=== PATIENT | male | born 1945 | race Caucasian/White ===

== ENCOUNTER 2017-04-11 09:41 | Inpatient (IN) | payer MEDICARE, OTHER ==
[~2017-04-11] VITALS: Ht 177.8 cm; Wt 86.2 kg
[~2017-04-11 09:41] MED LIST: AMITRIPTYLIN25 MG PO; AMLODIPINE5 MG PO; ASPIRIN EC81 MG PO; AVELOX400 MG PO; BL ADULT ASA81 MG PO; CELEXA20 MG PO; CITALOPRAM20 MG PO; COMBIVENT INH; COMBIVENT RESPIMAT IN; GLIMEPIRIDE2 MG PO; GLYBURIDE5 MG PO; HYDROCO/APAP1 TA9 PO; LEFLUNOMIDE20 MG PO; LISINOPRIL20 MG PO; LOPRESSOR 550 MG/TAB PO; LORTAB 7.57.5 MG PO; METO50TA52 PO; NASONEX50 MCG/AC; NITROSTAT0.4 MG PO; PREDNISONE10 MG PO; PREDNISONE5 MG PO; PROVENTIL HFA IN; SIMVASTATIN10 MG PO; SYMBICORT 80-4.5MCG IN; SYMBICORT1 AE1 IN; TERAZOSIN5 MG PO; THEOPHYLLINE S200 MG PO; TIZANIDINE2 MG PO; ZESTRIL10 M1 PO; ZPAK PO
[2017-04-11] MEDS ORDERED: HYDROCO/APAP1 T13 PO (14:06)
[2017-04-11] MEDS ORDERED: IPRATROPIU0.5 MG/3 M IN (14:07)
[2017-04-11] MEDS ORDERED: GABAPENTIN300 M2 PO (14:08)
[2017-04-11] MEDS ORDERED: VENTOLIN HFA IN (14:09)
[2017-04-11] MEDS ORDERED: ALLERGY NA50 MCG/ACT (14:12)
[2017-04-11] MEDS ORDERED: THEO-24400 MG PO (14:12)
[2017-04-11] MEDS ORDERED: MULTIVITAMI1 PO (14:14)
[2017-04-11] MEDS ORDERED: INCRUSE EL62.5 MCG/I IN (14:22)
[2017-04-11] MEDS ORDERED: GLIPIZIDE ER5 MG PO (14:22)
[2017-04-15] VITALS (10 sets, daily range): BP systolic 132–187; BP diastolic 72–108
[2017-04-15 08:01] LABS: HEMATOCRIT 40.4 % (39.0-50.0); HEMOGLOBIN 13.1 g/dl (14.0-18.0); MEAN CELL VOLUME 96.9 fL CALC (80.0-100.0); MEAN CORPUSCULAR HGB 31.4 pG CALC (26.0-32.0); MEAN CORPUSCULAR HGB CONC 32.4 g/L CALC (32.0-36.0); NEUT# 4.36 thou/uL (1.82-7.42); RED BLOOD COUNT 4.17 mill/uL (4.70-6.10); RED CELL DISTRI WIDTH 13.9 % (11.5-15.5)
--- NOTE | 2017-04-15 13:39 | NUR ---
REPORT RECEIVED FROM JEFRY IN OR, PT ARRIVED ON UNIT IN BED, SETTLED IN ROOM, C/O STEADY PAIN TO L. HIP @ 8/10, O2 @ 2L APPLIED, SURGICAL DRESSING TO LEFT KNEE IN PLACE DRY AND INTACT, LEG ELEVATED ON PILLOWS, ICE PACK APPLIED, SCD PLACED, CALL DEAN IN REACH, SPOUSE AT BEDSIDE.
--- NOTE | 2017-04-15 14:36 | NUR ---
PT. INSTRUCTED ON USE OF INCENTIVE SPIROMETER. DEVICE LEFT AT BEDSIDE WITH INSTRUCTION TO USE 10X/HR.
--- NOTE | 2017-04-15 17:17 | NUR ---
PATIENT WAS NOT YET ON FLOOR EARLIER THIS AFTERNOON. RETURNED FOR P.T. EVAL AND PATIENT HAVING ELEVATED BP AND 9.75/10 PAIN. THIS IS SFTER RECEIVING PAIN MEDS. DISCUSSED WITH NSG, WHO STATES PATIENT MAY DO BETTER IN THE AM. HE HAS ONLY BEEN UP ON FLOOR FOR COUPLE OF HOURS. WILL F/U TOMORROW MORNING.
--- NOTE | 2017-04-15 19:00 | NUR ---
REPORT RECEIVED FROM DIPAK HUMPHREYS,[facility]; PT.UPRIGHT IN BED W/FAMILY AT BEDSIDE; NO S/S OF DISTRESS AT THIS TIME;
--- NOTE | 2017-04-15 19:47 | NUR ---
ELEVATED BP AND HR, MD NOTIFIED AND GAVE ORDERS, NEXT SHIFT INFORMED AND WILL CONTINUE CARE, ALSO REPORTS PAIN NOT CONTROLLED.
--- NOTE | 2017-04-15 20:25 | NUR ---
NOTIFIED THAT PT.HR IS STILL ELEVATED IN THE 150'S W/BP 132/80; ORDERED LOPRESSOR IF HR NOT DOWN IN 15 MINUTES IN RESPONSE TO MEDICATION GIVEN BY DONNELLCOANGELINA
--- NOTE | 2017-04-15 20:56 | NUR ---
HR 158 W/BP 149/91, MEDICATED PT.W/LOPRESSOR, FOLLOW-UP HR @113
--- NOTE | 2017-04-15 23:16 | NUR ---
NEB TX NOT GIVEN DUE TO PREVIOUS TACHYCARDIA.
--- NOTE | 2017-04-16 | NUR ---
CALLED TO FOLLOW-UP W/PT.HR,SYMPTOMS,STATUS; PT.ASYMPTOMATIC, HR 113-115, INSTRUCTED TO CALL BACK IF HR ELEVATES
--- NOTE | 2017-04-16 03:18 | NUR ---
PT.MEDICATED FOR PAIN, PT.HAS BEEN SLEEPING, PT.NOT MOVING MUCH, LEG ELEVATED ON PILLOWS AND ALTERNATING ICE PACKS; PT. HAS CPAP OFF AT THIS TIME; DENIES ANY FURTHER NEEDS
[2017-04-16 05:10] VITALS: BP 145/62
[2017-04-16 05:54] LABS: HEMATOCRIT 35.3 % (39.0-50.0); HEMOGLOBIN 11.3 g/dl (14.0-18.0); IMMATURE GRANULOCYTES 0.7 % (0.0-1.0); MEAN CELL VOLUME 100.9 fL CALC (80.0-100.0); MEAN CORPUSCULAR HGB 32.3 pG CALC (26.0-32.0); NEUT# 9.35 thou/uL (1.82-7.42); RED BLOOD COUNT 3.5 mill/uL (4.70-6.10)
--- NOTE | 2017-04-16 06:06 | NUR ---
NEB TX NOT GIVEN DUE TO PREVIOUS TACHYCARDIA.
[2017-04-16 06:11] LABS: CALCIUM 8.5 mg/dL (8.4-10.2); CREATININE 1.7 mg/dL (0.7-1.3)
--- NOTE | 2017-04-16 07:00 | NUR ---
SHIFT CHANGE REPORT FROM CLARA, PT AWAKE ALERT AND ORIENTED IN SEMI-FOWLERS POSITION, O2 OFF AT THIS TIME, SATS = 72%, O2 REPLACED, SATS UP TO 84%, BREATHING SHALLOW AND LABORED. ASSISTED PT OOB TO RECLINER, GOT WINDED DURING TRANSFER, REASSESSED IN 20 MINS, PT RELAXED WITH EVEN NON-LABORED BREATHING, WILL CONTINUE TO MONITOR.
[2017-04-16 08:00] VITALS: BP 138/63
[2017-04-16 11:30] VITALS: BP 104/53
--- NOTE | 2017-04-16 12:45 | NUR ---
SITTING UP IN RECLINER, PAIN CONCERNS ADDRESSED, CALL DEAN IN REACH.
--- NOTE | 2017-04-16 13:15 | NUR ---
CARSON REMOVED AFTER INFORMING PT OF PROCEDURE, TOLERATED WITHOUT DIFFICULTY/DISCOMFORT, WILL CONTINUE TO MONITOR.
[2017-04-16 15:17] VITALS: BP 123/61
--- NOTE | 2017-04-16 16:54 | NUR ---
RESTING IN BED AT THIS TIME, NO C/O DISCOMFORT, SPOUSE AT BEDSIDE, CALL DEAN IN REACH.
--- NOTE | 2017-04-16 17:47 | NUR ---
PM: PATEINT SEEN THIS PM FOR EX ONLY HE WAS TOO TIRED TO GET OOB AGAIN. ACTIVE, AA AND ISOMETRICS DONE WITH LEFT LE. AND ACTIVE EX WITH RIGHT. HE APPEARED TO TOLERATE TREATMENT WELL AND SEEMED TO HAVE AN EASIER TIME STAYING AWAKE THAN HE DID THIS MORNING DURING THE EVAL. HE WAS LEFT COMFORTABLE WITH THE CALL LIGHT BY HIS SIDE. HIS IS IN THE ROOM WITH HIM.
--- NOTE | 2017-04-16 18:51 | NUR ---
PT HAS NOT VOIDED SINCE CARSON REMOVED @ 1315, BLADDER SCANNED = 75 ML @ 1845, WILL CONTINUE TO MONITOR.
[2017-04-16 19:35] VITALS: BP 137/71
--- NOTE | 2017-04-16 19:56 | NUR ---
REPORT RECEIVED FROM SYLVIA HUMPHREYS; SHE REPORTED THAT CARSON CATHETER WAS REMOVED AND PT.HAS NOT URINATED, PT. WAS BLADDER SCANNED SHOWING ONLY 75CC OF 1844; JULIANN CALLED WHO ORDERED 1LITER NS X1 @ 100ML/HR, ENCOURAGE PO FLUIDS AND MONITOR OUTPUT, AND TO CALL HIM IF PT.DOES NOT START TO URINATE; WILL CONTINUE TO MONITOR PROGRESS AND ENCOURAGE PO FLUIDS AND USE OF URINAL.
--- NOTE | 2017-04-16 21:17 | NUR ---
PT ASSESSED AND MEDICATED, NS RUNNING @100; MADE SURE PT.DRANK 120CC OF WATER; 1+EDEMA IN LEFT LEG/ANKLE, LEG ELEVATED ON PILLOWS AND ICE PACK IN PLACE; PT.SHOWING SOME SOB UPON ANY MOVEMENT, NON-LABORED BREATHING WHEN LYING STILL; PT.ASSISTED W/BIPAP PLACEMENT AND LIGHTS OUT;
--- NOTE | 2017-04-16 21:19 | NUR ---
BS 89, PT.EATING SUSSY CRACKERS AT THIS TIME
[2017-04-16 23:52] VITALS: BP 141/70
--- NOTE | 2017-04-17 00:39 | NUR ---
PT.DRANK 120CC WATER FOR ME, OUTPUT IN URINAL 250CC OF DARK YELLOW CLEAR URINE; CPAP BACK ON, REPOSITONED W/LEG ELEVATED AND CALL LIGHT W/IN REACH
[2017-04-17 04:20] VITALS: BP 143/62
[2017-04-17 05:37] LABS: HEMATOCRIT 33.6 % (39.0-50.0); HEMOGLOBIN 10.9 g/dl (14.0-18.0); IMMATURE GRANULOCYTES 0.7 % (0.0-1.0); MEAN CELL VOLUME 97.4 fL CALC (80.0-100.0); MEAN CORPUSCULAR HGB 31.6 pG CALC (26.0-32.0); MEAN CORPUSCULAR HGB CONC 32.4 g/L CALC (32.0-36.0); NEUT# 9.19 thou/uL (1.82-7.42); RED BLOOD COUNT 3.45 mill/uL (4.70-6.10); RED CELL DISTRI WIDTH 13.9 % (11.5-15.5)
--- NOTE | 2017-04-17 05:38 | NUR ---
PT.ENCOURAGED THROUGHOUT NIGHT PO FLUIDS AND HAD ANOTHER 300CC OF URINE OUTPUT OF DILEEP CLEAR URINE
[2017-04-17 05:50] LABS: CALCIUM 8.6 mg/dL (8.4-10.2); CREATININE 1.7 mg/dL (0.7-1.3); POTASSIUM 4.4 mmol/l (3.5-5.1)
--- NOTE | 2017-04-17 07:00 | NUR ---
SHIFT CHANGE REPORT FROM CLIFFORD ELIZABETH AWAKE, C-PAP IN PLACE, ASSISTED OOB TO RECLINER AND SET UP FOR MEAL, C/O L. LEG/KNEE PAIN ON MOVEMENT, CONCERN ADDRESSED, DISCUSSION ON PREVENTION OF CONSTIPATION AND ADDRESSED CONDITION, CALL DEAN IN REACH, SPOUSE JUST ARRIVED IN ROOM.
[2017-04-17 07:31] VITALS: BP 184/81
[2017-04-17 11:08] VITALS: BP 143/77
--- NOTE | 2017-04-17 12:00 | NUR ---
SITTING UP IN RECLINER, PAIN CONCERNS ADRESSED, ADVISED OF SURGICAL DRESSING ORDERS, OLD DRESSING REMOVED AND NEW ONE APPLIED PER ORDER.
--- NOTE | 2017-04-17 13:26 | NUR ---
AM: PATEINT SEEN FOR FA AND EXERCISE. HIS STATES HE IS MUCH MORE CONFUSED THAN BEFORE SURGERY.HE FOLLOWS INSTRUCTIONS 75% OF THE TIME. STOOD PATIENT TIMES 1. HE REQUIRED MAX ASSIST OF 1 TO COME TO STAND. HE HELPS WITH THE TRANSFER. STANDS WITH THE WALKER IN A STOOPED POSITION WITH RIGHT KNEE FLEXED ABOUT 15 DEGREES. HIS THIS IS HOW HE STOOD BEFORE SURGERY. MARCHING IN PLACE EX DONE FOR 10 REPS. ENDURANCE LIMITED BY SOB. PO2 DECREASED TO 80 DURING STANDING WITH THE O2 ON. APPROX 8 MIN REQUIRED BEFORE IT RETURNED TO BASELINE. ACTIVE EX DONE FOR ANGELIQUE DN STRENGTHENING OF THE LEFT KNEE. HE WAS LEFT IN THE CHAIR WITH THE CALL LIGHT ON HIS LAP. HIS IS IN THE ROOM.
[2017-04-17 15:30] VITALS: BP 151/71
--- NOTE | 2017-04-17 16:05 | NUR ---
PHYSICAL THERAPIST JUST COMPLETED THERAPY WITH PT AND ASSISTED HEM BACK TO BED, LETHARGIC AT THIS TIME AND STATES HE IS TIRED FROM NOT SLEEPING SINCE BEING HERE, WILL CONTINUE TO MONITOR. SPOUSE AT BEDSIDE, CALL DEAN IN REACH.
--- NOTE | 2017-04-17 16:52 | NUR ---
PM: PATIENT SEEN FOR FA. FA FOR TRANSFERS FROM SIT TO AND FROM STAND AND TRANSFERS TO THE BED FROM THE CHAIR. HE SHOWED IMPROVEMENT TODAY DURING THE PIVOT TRANSFERS SUPPORTING MUCH OF HIS WGT AND MOVING HIS FEET INDEP. HE REQUIRED CONTINUAL MANUAL AND VERBAL CUING TO STAND STRAIGHT AND EXTEND THE KNEES. HE REQUIRED MAX ASSIST TO COMPLETE THE FINAL 2 STEPS OF THE TRANSFER HIS KNEES WERE BUCKLING. SIT TO SUPINE REQUIRES MOD ASSIST OF TWO. HE BECOMES CONFUSED WHEN TRYING TO ASSIST. PULSE AND O2 MONITERED BY AIDE WHO RECORDED THEM. THEY BOTH RETURNED TO BASELINE WITHIN 30 SECONDS. HE WAS LEFT COMFORTABLE IN THE BED WITH HIS IN ATTENDANCE.
[2017-04-17 18:56] VITALS: BP 158/77
--- NOTE | 2017-04-17 19:00 | NUR ---
STAFF REPORTED ED CALLED WITH HR RATE IN 130'S, ON OBSERVATION THEY FOUND PT TALKING ON PHONE WITH NO OXYGEN IN PLACE AND DIFFICULTY BREATHING. DR PEACOCK NOTIFIED OF CONDITION AND GAVE ORDERS. TEMP AT THIS TIME = 101.9, PERCOCET GIVEN, HEAVY COVERS REMOVED AND ROOM TEMP DECREASED. TEMP RECECKED @ 1930 = 100.2, REPORT GIVEN TO NEXT SHIFT (SEUN) FOR CONTINUATION OF CARE.
--- NOTE | 2017-04-17 19:10 | NUR ---
RECEIVED SHIFT REPORT FRON DIPAK HUMPHREYS. PATIENT RESTING QUIETLY AT THIS TIME IN BED. TEMP OF 100.7. WILL CONTINUE TO MONITOR
--- NOTE | 2017-04-17 20:40 | NUR ---
NOTIFY DR PEACOCK OF PATIENT'S CONDITION. ORDERS RECEIVED FOR UA, CXR, BLOOD CULTURES, AND LACTIC ACID.
--- NOTE | 2017-04-17 22:00 | NUR ---
TEMPERATURE AT THIS TIME IS 98.9
--- NOTE | 2017-04-17 23:00 | NUR ---
PATIENT UP TO RECLINER CHAIR. PT HAS PERIODS OF CONFUSION. O2 SAT AT 92% ON 2L NC.
[2017-04-18] VITALS: BP 160/80
--- NOTE | 2017-04-18 00:30 | NUR ---
ASSISTED PATIENT BACK TO BED. RESPIRATORY THERAPIST ASSIT PATIENT WITH APPLYING C-PAP. PT RESTING COMFORTABLY AT THIS TIME. PT APPEARS NOT TO BE IN ANY APPARENT ACUTE DISTRESS. WILL CONTINUE TO MONITOR.
[2017-04-18 00:58] LABS: URINE BILIRUBIN - DIPSTICK NEGATIVE (NEGATIVE); URINE BLOOD DIPSTICK LARGE (NEGATIVE); URINE CLARITY CLEAR; URINE COLOR YELLOW; URINE GLUCOSE - DIPSTICK NEGATIVE (NEGATIVE); URINE KETONE 15 mg/dL (NEGATIVE); URINE LEUK ESTERASE NEGATIVE (Negative); URINE NITRITE - DIPSTICK NEGATIVE (Negative); URINE PH 5.5 (4.5-8.0); URINE PROTEIN - DIPSTICK 30 mg/dL (NEG-TRACE); URINE UROBILINOGEN - DIPSTICK 0.2 E.U./dL (0.2)
[2017-04-18 01:08] LABS: URINE BACTERIA FEW hpf; URINE RBC 25-50 RBC/hpf (0-5); URINE WBC 0-2 WBC/hpf (0-5)
[2017-04-18 01:09] LABS: URINE FINE GRAN CAST FEW lpf
[2017-04-18 04:10] VITALS: BP 130/68
[2017-04-18 06:15] LABS: HEMATOCRIT 31.9 % (39.0-50.0); HEMOGLOBIN 10.6 g/dl (14.0-18.0); IMMATURE GRANULOCYTES 0.6 % (0.0-1.0); MEAN CELL VOLUME 97.3 fL CALC (80.0-100.0); MEAN CORPUSCULAR HGB 32.3 pG CALC (26.0-32.0); MEAN CORPUSCULAR HGB CONC 33.2 g/L CALC (32.0-36.0); NEUT# 8.42 thou/uL (1.82-7.42); RED BLOOD COUNT 3.28 mill/uL (4.70-6.10); RED CELL DISTRI WIDTH 13.9 % (11.5-15.5)
[2017-04-18 06:30] LABS: CALCIUM 8.8 mg/dL (8.4-10.2); CREATININE 1.6 mg/dL (0.7-1.3); POTASSIUM 4.5 mmol/l (3.5-5.1)
--- NOTE | 2017-04-18 08:30 | NUR ---
PT ALERT, RESTLESS; O2 2L VIA NC; PT C/O LEFT KNEE PAIN 08/07, MEDICATED ORDERED; TELE MONITOR IN PLACE; CALL DEAN WITHIN REACH; WILL CONTINUE TO MONITOR.
[2017-04-18 08:31] VITALS: BP 156/82
--- NOTE | 2017-04-18 10:00 | NUR ---
DRSG TO LEFT KNEE REMOVED; MODERATE AMOUNT OF EDEMA NOTED, WARM TO TOUCH; AREA CLEANED WITH BETADINE; COVERED WITH 4X4 GAUZE AND SECURE WITH MEDIPORE TAPE; PT TOLERATED WELL; NO COMPLAINTS VOICED AT THIS TIME; O2 2L VIA NC; SPOUSE IN ROOM TO VISIT; CALL DEAN WITHIN REACH; WILL CONTINUE TO MONITOR
--- NOTE | 2017-04-18 11:30 | NUR ---
PT INCONTINENT OF MODERATE AMOUNT OF URINE; LINDA CARE PROVIDED AND PT REPOSITIONED; SPOUSE IN TO VISIT PT; O2 2L VIA NC; CALL DEAN WITHIN REACH; WILL CONTINUE TO MONITOR.
--- NOTE | 2017-04-18 12:14 | NUR ---
AM: THERAPY HELD IN AM. PATIENT SOUND ASLEEP AFTER A VERY RESTLESS NIGHT. WILL TRY TO SEE HIM THIS P.M. IF HE IS AWAKE.
[2017-04-18 12:30] VITALS: BP 125/82
--- NOTE | 2017-04-18 12:49 | NUR ---
Attempted treatment again this pm, was able to get pt eyes open but unable to stay alert. Pt gown was changed due to being wet and nursing notifed that bed needed to be change.
[2017-04-18] MEDS ORDERED: ASPIRIN EC325 MG PO (13:04)
[2017-04-18] MEDS ORDERED: PROTONIX40 M2 PO (13:04)
[2017-04-18] MEDS ORDERED: HYDROCO/APAP1 T13 PO (13:04)
--- NOTE | 2017-04-18 16:13 | NUR ---
PT UP IN CHAIR; SPOUSE IN ROOM TO VISIT; PT AROUSABLE/DRWOSY; A/O X2; IVF INFUSING IN #22 LH WITHOUT DIFFICULTY; CALL DEAN WITHIN REACH; WILL CONTINUE TO MONITOR.
--- NOTE | 2017-04-18 16:53 | NUR ---
Discharge instructions given. Patient verbalizes understanding of same. Discharged in stable condition via Wheelchair to R with *Other. All belongings sent with pt.
== END 2017-04-18 17:01 | DRG 470 ==
LOC: MS2 04-15 06:51
PROVIDERS: ADMIT Orthopaedic Surgery; ATTEND Internal Medicine
PROC: 0SRD0J9 Replacement of Left Knee Joint with Synthetic Substitute, Cemented, Open Approach (ICD-10-PCS; principal; 2017-04-15)
DX: M17.12 Unilateral primary osteoarthritis, left knee (principal); J96.11 Chronic respiratory failure with hypoxia; F05 Delirium due to known physiological condition; E11.22 Type 2 diabetes mellitus with diabetic chronic kidney disease; E11.40 Type 2 diabetes mellitus with diabetic neuropathy, unspecified; I12.9 Hypertensive chronic kidney disease with stage 1 through stage 4 chronic kidney disease, or unspecified chronic kidney disease; N18.3 Chronic kidney disease, stage 3 (moderate); J44.9 Chronic obstructive pulmonary disease, unspecified; G47.33 Obstructive sleep apnea (adult) (pediatric); E78.5 Hyperlipidemia, unspecified; N40.0 Benign prostatic hyperplasia without lower urinary tract symptoms; R00.0 Tachycardia, unspecified; Z99.81 Dependence on supplemental oxygen; Z87.891 Personal history of nicotine dependence
CPT/HCPCS: J2270; J2795

== ENCOUNTER 2017-05-07 10:44 | Emergency (ER) | payer MEDICARE, OTHER ==
[~2017-05-07] VITALS: Ht 177.8 cm; Wt 80.9 kg
[~2017-05-07 10:44] MED LIST changes: +ALLERGY NA50 MCG/ACT; +ASPIRIN EC325 MG PO; +GABAPENTIN300 M2 PO; +GLIPIZIDE ER5 MG PO; +HYDROCO/APAP1 T13 PO; +INCRUSE EL62.5 MCG/I IN; +IPRATROPIU0.5 MG/3 M IN; +MULTIVITAMI1 PO; +PROTONIX40 M2 PO; +THEO-24400 MG PO; +VENTOLIN HFA IN
[2017-05-07] MEDS ORDERED: SEROQUEL25 MG PO (11:15)
[2017-05-07 11:18] LABS: HEMATOCRIT 34.8 % (39.0-50.0); HEMOGLOBIN 11.1 g/dl (14.0-18.0); IMMATURE GRANULOCYTES 1.3 % (0.0-1.0); MEAN CORPUSCULAR HGB 31.3 pG CALC (26.0-32.0); MEAN CORPUSCULAR HGB CONC 31.9 g/L CALC (32.0-36.0); NEUT# 4.63 thou/uL (1.82-7.42); RED BLOOD COUNT 3.55 mill/uL (4.70-6.10); RED CELL DISTRI WIDTH 14.4 % (11.5-15.5)
[2017-05-07 11:37] LABS: ALBUMIN 3.7 g/dL (3.2-5.0); ALKALINE PHOSPHATASE 70 u/l (38-126); ANION GAP 12 (6-22 (CALC)); BILIRUBIN, TOTAL 0.4 mg/dL (0.0-1.4); BUN 17 mg/dL (8-23); BUN/CREATININE RATIO 13 (12-20 (CALC)); CALCIUM 9.2 mg/dL (8.4-10.2); CARBON DIOXIDE 26 mmol/l (22-30); CHLORIDE 105 mmol/l (95-108); CREATININE 1.3 mg/dL (0.7-1.3); GFR 54 ML/MIN (>=60 (CALC)); GFR FOR AFR.AMER. > 60 ML/MIN (>=60 (CALC)); GLUCOSE 98 mg/dL (82-115); POTASSIUM 4.6 mmol/l (3.5-5.1); SGOT/AST 19 u/l (19-48); SGPT/ALT 24 u/l (11-66); SODIUM 139 mmol/l (137-146); TOTAL PROTEIN 6.6 g/dL (6.3-8.2)
[2017-05-07 16:58] VITALS: BP 164/76
== END 2017-05-07 16:34 ==
LOC: ED 10:44
PROVIDERS: Emergency Medicine
DX: T81.31XA Disruption of external operation (surgical) wound, not elsewhere classified, initial encounter (principal); I25.10 Atherosclerotic heart disease of native coronary artery without angina pectoris; J44.9 Chronic obstructive pulmonary disease, unspecified; I10 Essential (primary) hypertension; B95.62 Methicillin resistant Staphylococcus aureus infection as the cause of diseases classified elsewhere; Y83.1 Surgical operation with implant of artificial internal device as the cause of abnormal reaction of the patient, or of later complication, without mention of misadventure at the time of the procedure; Z95.5 Presence of coronary angioplasty implant and graft; Z96.652 Presence of left artificial knee joint

== ENCOUNTER 2017-08-23 11:46 | Inpatient (IN) | payer MEDICARE, OTHER ==
[~2017-08-23] VITALS: Ht 180.3 cm; Wt 77.7 kg
[~2017-08-23 11:46] MED LIST changes: +SEROQUEL25 MG PO
--- NOTE | 2017-08-23 12:00 | NUR ---
DIRECT ADMIT VIA WHEELCHAIR ACCOMPANIED BY . AMBULATED TO BED WITH STAND BY ASSIST. RESPS EVEN AND UNLABORED ON ROOM AIR. SKIN INTACT. DENIES PAIN OR DISCOMFORT. ORIENTED TO ROOM AND CALL SYSTEM. SAFETY PRECAUTIONS REINFORCED. BED IN LOWEST POSITION WITH WHEELS LOCKED. CALL LIGHT WITHIN REACH. ENCOURAGED PT AND TO CALL FOR ANY NEEDS.
[2017-08-23 12:25] VITALS: BP 139/81
[2017-08-23 12:32] LABS: HEMATOCRIT 30.8 % (39.0-50.0); HEMOGLOBIN 9.9 g/dl (14.0-18.0); MEAN CELL VOLUME 89.8 fL CALC (80.0-100.0); MEAN CORPUSCULAR HGB 28.9 pG CALC (26.0-32.0); MEAN CORPUSCULAR HGB CONC 32.1 g/L CALC (32.0-36.0); NEUT# 5.09 thou/uL (1.82-7.42); RED BLOOD COUNT 3.43 mill/uL (4.70-6.10); RED CELL DISTRI WIDTH 14.9 % (11.5-15.5)
[2017-08-23 12:47] LABS: ALBUMIN 3.2 g/dL (3.2-5.0); ALKALINE PHOSPHATASE 81 u/l (38-126); ANION GAP 16 (6-22 (CALC)); BILIRUBIN, TOTAL 0.3 mg/dL (0.0-1.4); BUN 13 mg/dL (8-23); BUN/CREATININE RATIO 12 (12-20 (CALC)); CALCIUM 8.8 mg/dL (8.4-10.2); CARBON DIOXIDE 26 mmol/l (22-30); CHLORIDE 104 mmol/l (95-108); CREATININE 1.2 mg/dL (0.7-1.3); GFR 59 ML/MIN (>=60 (CALC)); GFR FOR AFR.AMER. > 60 ML/MIN (>=60 (CALC)); GLUCOSE 120 mg/dL (82-115); POTASSIUM 4.2 mmol/l (3.5-5.1); SGOT/AST 23 u/l (19-48); SGPT/ALT 29 u/l (11-66); SODIUM 141 mmol/l (137-146); TOTAL PROTEIN 7.1 g/dL (6.3-8.2)
[2017-08-23 14:35] LABS: URINE BILIRUBIN - DIPSTICK NEGATIVE (NEGATIVE); URINE BLOOD DIPSTICK NEGATIVE (NEGATIVE); URINE CLARITY CLEAR; URINE COLOR YELLOW; URINE GLUCOSE - DIPSTICK NEGATIVE (NEGATIVE); URINE KETONE NEGATIVE (NEGATIVE); URINE LEUK ESTERASE NEGATIVE (Negative); URINE NITRITE - DIPSTICK NEGATIVE (Negative); URINE PROTEIN - DIPSTICK TRACE mg/dL (NEG-TRACE); URINE SPECIFIC GRAVITY 1.015; URINE UROBILINOGEN - DIPSTICK 0.2 E.U./dL (0.2)
[2017-08-23] MEDS ORDERED: LORTAB 10-325 M1 TAB PO (15:16)
[2017-08-23] MEDS ORDERED: ZOCOR20 M1 PO (15:27)
[2017-08-23 16:00] VITALS: BP 151/81
--- NOTE | 2017-08-23 16:00 | NUR ---
RESTING IN SEMI FOWLERS. RESPS EVEN AND UNLABORED ON ROOM AIR. DENIES PAIN OR DISCOMFORT. CALL LIGHT WITHIN REACH.
[2017-08-23] MEDS ORDERED: CLINDAMYCIN300 M1 PO (18:40)
[2017-08-23] MEDS ORDERED: GLIPIZIDE ER5 M1 PO (18:41)
[2017-08-23 18:50] VITALS: BP 136/82
--- NOTE | 2017-08-23 19:00 | NUR ---
BEDSIDE REPORT RECEIVED FROM DIPAK GUAMAN. PT RESTING IN BED SUPINE. C/O LOWER BACK PAIN AT THIS TIME. RESPIRATIONS EVEN AND UNLABORED ON OXYGEN AT 2L VIA NC. PLAN OF CARE DISCUSSED. PT ENCOURAGED TO VERBALZIE CONCERNS. STATES UNDERSTANDING. REMAINS ON CONTACT PRECAUTIONS FOR MRSA. SAFETY MEASURES IN PLACE. CALL LIGHT WITHIN REACH.
--- NOTE | 2017-08-24 | NUR ---
PT AWAKENS SPONTANEOUSLY FOR MEDICATION AT THIS TIME. REQUEST PAIN MEDICATION FOR LOWER BACK PAIN; WILL GIVE NEXT DOSE WHEN DUE. IV FLUIDS INFUSING WITHOUT DIFFICULTY; IV SITE APPEARS HEALTHY. SAFETY MEASURES REMAIN IN PLACE. CALL LIGHT WITHIN REACH.
[2017-08-24 03:45] VITALS: BP 148/82
--- NOTE | 2017-08-24 04:09 | NUR ---
PT ASLEEP AT THIS TIME. NO SIGNS OF DISTRESS NOTED. RESPIRATIONS EVEN AND UNLABORED. NO CHANGES IN ASSESSMENT NOTED. CALL LIGHT WITHIN REACH.
[2017-08-24 06:25] LABS: HEMATOCRIT 29.6 % (39.0-50.0); HEMOGLOBIN 9.4 g/dl (14.0-18.0); IMMATURE GRANULOCYTES 1.4 % (0.0-1.0); MEAN CELL VOLUME 90.5 fL CALC (80.0-100.0); MEAN CORPUSCULAR HGB 28.7 pG CALC (26.0-32.0); MEAN CORPUSCULAR HGB CONC 31.8 g/L CALC (32.0-36.0); NEUT# 3.76 thou/uL (1.82-7.42); RED BLOOD COUNT 3.27 mill/uL (4.70-6.10)
--- NOTE | 2017-08-24 06:35 | NUR ---
CPAP AT BEDSIDE. PT DECLINED THIS SHIFT. RECEIVED ONLY SCHEDULED DUONEB TREATMENTS. OXYGEN SATURATIONS HAVE REMAINED ABOVE 90% AND RESPIRATIONS EVEN AND UNLABORED.
[2017-08-24 06:38] LABS: ANION GAP 16 (6-22 (CALC)); BUN 11 mg/dL (8-23); BUN/CREATININE RATIO 11 (12-20 (CALC)); CALCIUM 8.5 mg/dL (8.4-10.2); CARBON DIOXIDE 24 mmol/l (22-30); CHLORIDE 105 mmol/l (95-108); GFR > 60 ML/MIN (>=60 (CALC)); GFR FOR AFR.AMER. > 60 ML/MIN (>=60 (CALC)); GLUCOSE 102 mg/dL (82-115); MAGNESIUM 1.7 mg/dL (1.6-2.3); POTASSIUM 4.2 mmol/l (3.5-5.1); SODIUM 141 mmol/l (137-146)
[2017-08-24 07:29] VITALS: BP 130/69
--- NOTE | 2017-08-24 07:40 | NUR ---
REPORT RECEIVED FROM OJNE LOCKWOOD. PT SUPINE IN BED. REPORTS BACK PAIN, ONLY SLIGHTLY RELIEVED BY RECENT LORTAB PO. TYLENOL ADMINISTERED. REPORTING OF CONCERNS ENCOURAGED. CALL LIGHT REVIEWED AND IN REACH. PT IN AWKWARD POSITION IN BED, REPOSITIONING OFFERED AND REFUSED. PT STATES "THIS IS HOW IM MOST COMFORTABLE."
--- NOTE | 2017-08-24 13:18 | NUR ---
PT SITTING ON SIDE OF BED. DENIES HALLUCINATIONS. ALERT AND ORIENTED X 4. PT STATES "BUT IF I DID SEE SOMETHING I WASNT SUPPOSED TO, I WOULDNT TELL NOBODY EVER AGAIN." PT ENCOURAGED TO NOTIFY STAFF OF CHANGES, QUESTIONS ADN CONCERNS.
[2017-08-24 16:05] VITALS: BP 142/78
--- NOTE | 2017-08-24 16:29 | NUR ---
PT SLEEPING AT THIS TIME. CALL LIGHT WITHIN REACH.
[2017-08-24 19:18] VITALS: BP 144/73
--- NOTE | 2017-08-24 21:00 | NUR ---
PT RESTING IN SUPINE POSITION;PT COMPLAINS OF LOWER BACK PAIN RATING 8/10 ON THE PAIN SCALE;PT MEDICATED WITH PRN LORTAB;ASSESSMENT COMPLETED;02 ON @ 2L VIA NC,RESPIRATIONS EVEN AND UNLABORED AT THIS TIME;PT DENIES ANY HALLUCINATIONS AT THIS TIME;#20G TO RIGHT FOREARM INFUSING NS @ 75ML/HR;PT ON CONTACT FOR HX OF MRSA;PT DENIES ANY OTHER NEEDS AT THIS TIME;SAFETY PRECAUTIONS REINFORCED;BED IN THE LOWEST POSITION WITH CALL LIGHT IN REACH;WILL CONTINUE TO MONITOR
--- NOTE | 2017-08-25 01:50 | NUR ---
PT APPEARS TO BE SLEEPING WITH EYES CLOSED IN SUPINE POSITION;NO S/S OF DISTRESS NOTED;RESPIRATIONS EVEN AND UNLABORED ON 02 @ 2L;IV FLUIDS INFUSING WELL INTO RIGHT FOREARM;FALL PRECAUTIONS IN PLACE;CALL LIGHT IN REACH;WILL CONTINUE TO MONITOR
[2017-08-25 04:30] VITALS: BP 140/87
--- NOTE | 2017-08-25 04:31 | NUR ---
PT INITIAL TELE READING SR 95, PER ER MONITORING
--- NOTE | 2017-08-25 05:00 | NUR ---
PT APPEARS TO BE SLEEPING IN SUPINE POSITION;IV FLUIDS INFUSING WELL TO RIGHT FOREARM;O2 ON @ 2L VIA NC,RESPIRATIONS EVEN AND UNLABORED;FALL PRECAUTIONS IN PLACE WITH CALL LIGHT IN REACH;WILL CONTINUE TO MONITOR
[2017-08-25 05:33] LABS: HEMOGLOBIN 9.9 g/dl (14.0-18.0); MEAN CELL VOLUME 91.4 fL CALC (80.0-100.0); MEAN CORPUSCULAR HGB 29.2 pG CALC (26.0-32.0); MEAN CORPUSCULAR HGB CONC 31.9 g/L CALC (32.0-36.0); RED BLOOD COUNT 3.39 mill/uL (4.70-6.10); RED CELL DISTRI WIDTH 15.2 % (11.5-15.5)
[2017-08-25 05:44] LABS: ANION GAP 15 (6-22 (CALC)); BUN 12 mg/dL (8-23); BUN/CREATININE RATIO 11 (12-20 (CALC)); CALCIUM 8.7 mg/dL (8.4-10.2); CARBON DIOXIDE 24 mmol/l (22-30); CHLORIDE 106 mmol/l (95-108); GFR > 60 ML/MIN (>=60 (CALC)); GFR FOR AFR.AMER. > 60 ML/MIN (>=60 (CALC)); GLUCOSE 110 mg/dL (82-115); MAGNESIUM 1.6 mg/dL (1.6-2.3); POTASSIUM 4.3 mmol/l (3.5-5.1); SODIUM 140 mmol/l (137-146)
--- NOTE | 2017-08-25 07:25 | NUR ---
PT LAYING IN BED WATCHING TV, VERBALIZES NO COMPLAINTS, A & O X3, PERRL, RESP. EVEN AND UNLABORED, LUNG SOUNDS DIMINISHED IN BASES, O2 @ 2L VIA NC, TRACE EDEMA IN BILAT LEGS, 20G RFA IV WITH NS INFUSING AT PERSCRIBED RATE, AM ASSESSMENT COMPLETE, SEE INTERVENTIONS, SAFETY MEASURES REINFORCED, CALL DEAN WITHIN REACH
--- NOTE | 2017-08-25 07:37 | NUR ---
SETUP ASSISTANCE PROVIDED WITH AM MEAL TRAJarvis
--- NOTE | 2017-08-25 08:16 | NUR ---
DR PEACOCK AND PAYAM KIRKPATRICK AT BEDSIDE DISCUSSING PLAN OF CARE
[2017-08-25 11:00] VITALS: BP 143/69
--- NOTE | 2017-08-25 12:15 | NUR ---
PT LAYING IN BED RESTING WITH EYES CLOSED, AROUSES EASILY TO VERBAL STIMULI, PT ASSISTED WITH REPOSITIONING FOR COMFORT, CALL DEAN WITHIN REACH
--- NOTE | 2017-08-25 16:35 | NUR ---
PT LAYING IN BED RESTING, AROUSES EASILY TO VERBAL STIMULI, VERBALIZES NO COMPLAINTS, CALL DEAN WITHIN REACH
[2017-08-25 17:03] VITALS: BP 133/74
[2017-08-25 20:10] VITALS: BP 129/67; BP 156/84
--- NOTE | 2017-08-25 21:50 | NUR ---
PT RESTING IN SEMI FOWLERS POSITION RECEIVING BREATHING TX;PT DENIES ANY PAIN OR DISCOMFORTS;RESPIRATIONS EVEN AND UNLABORED ON 02 @ 2L NS;ASSESSMENT COMPLETED;#20G TO RFA INFUSING NS @ 75ML/HR WELL;CONTACT PRECAUTIONS IN PLACE FOR MRSA;EDEMA NOTED TO BLE,PT EDUCATED TO ELEVATE LEGS;HOME CPAP AT BEDSIDE;PT A&O X3 AT THIS TIME;PT DENIES ANY NEEDS AND IS EDUCATED TO CALL FOR ASSISTANCE IF NEEDED;FALL PRECAUTIONS IN PLACE;CALL LIGHT IN REACH;WILL CONTINUE TO MONITOR
[2017-08-25 23:25] VITALS: BP 138/73
--- NOTE | 2017-08-25 23:25 | NUR ---
PT APPEARS TO BE SLEEPING IN SUPINE POSITION;WOKE PT TO OBTAIN VS;PT DENIES ANY NEEDS AT THIS TIME;RESPIRATIONS EVEN AND UNLABORED ON 02 @ 2L;IV FLUIDS INFUSING WELL TO RIGHT FOREARM;CALL LIGHT IN REACH;WILL CONTINUE TO MONITOR
[2017-08-26 04:40] VITALS: BP 140/70
--- NOTE | 2017-08-26 04:45 | NUR ---
PT RESTING AT BEDSIDE WITH IV FLUIDS INFUSING WELL;PT COMPLAINS OF LOWER BACK PAIN RATING 8/10 ON THE PAIN SCALE AND REQUESTS PAIN MEDICATION;PT MEDICATED WITH PRN LORTAB;RESPIRATIONS REMAIN UNLABORED ON OXYGEN @ 2 L;TELE MONITOR IN PLACE;PT DENIES ANY OTHER NEEDS AT THIS TIME;CALL LIGHT IN REACH;WILL CONTINUE TO MONITOR
[2017-08-26 08:25] VITALS: BP 141/79
--- NOTE | 2017-08-26 08:25 | NUR ---
ASSESSMENT IS COMPLETED: LEFT KNEE IS SWOLLEN WARM TO THE TOUCH. PER PT DOESNOT HURT. IV SITE IS FREE FROM REDNESS OR EDEMA. TELE MONITOR IN PLACE. O2 @ 2LITERS WITH NC,
[2017-08-26 11:33] VITALS: BP 149/69
--- NOTE | 2017-08-26 12:03 | NUR ---
PATIENT SITTING ON EDGE OF BED. HE STATES, "HE IS READY TO GET OUT OF HERE AND GO HOME". PATIENT FEELING UNSTEADY AND PREFERS TO USE RW TODAY RATHER THAN CANE. SIT TO STAND INDEP WITH SUPERVISION. AMB 75 X 2 WITH SOME MILD UNSTEADINESS, MOSTLY WITH THE WALKER ITSELF (COMING UP OFF GROUND). NO SOB OR PAIN NOTED. PATIENT IS WAITING TO SEE PHYSICIAN TO FIND OUT IF HE IS BEING D/C'D TODAY.
[2017-08-26] MEDS ORDERED: DOXYCYCL HYC100 MG PO (12:13)
[2017-08-26] MEDS ORDERED: FLORASTOR250 M1 PO (12:13)
[2017-08-26] MEDS ORDERED: KEFLEX500 M1 PO (12:13)
--- NOTE | 2017-08-26 12:30 | NUR ---
PT IS WAITING ON FAMIL. IV SITE IS FREE FROM REDNESS OR EDEMA. PT TOOK TELE MONITOR OFF. INFORMED PT "WHEN PT'S FAMILY COMES THEN DC PAPERS ARE READY" VERBALIZED UNDERSTANDING,
--- NOTE | 2017-08-26 16:00 | NUR ---
PT'S IV SITE DISCONTINUED CATHETER INTACT. NO REDNESS OR EDEMA. ALL DISCHARGE INSTRUCTIONS GIVEN AND VERBALIZED UNDERSTANDING,
--- NOTE | 2017-08-26 16:58 | NUR ---
Discharge instructions given. Patient verbalizes understanding of same. Discharged in stable condition via Wheelchair to Home with family. All belongings sent with pt.
== END 2017-08-26 15:44 | disposition home health service (06) | DRG 71 ==
LOC: MS2 11:46
PROVIDERS: Nurse Practitioner Family; ADMIT Internal Medicine; ATTEND Internal Medicine
DX: G93.40 Encephalopathy, unspecified (principal); J96.11 Chronic respiratory failure with hypoxia; E11.22 Type 2 diabetes mellitus with diabetic chronic kidney disease; L03.116 Cellulitis of left lower limb; T81.4XXA Infection following a procedure, initial encounter; I12.9 Hypertensive chronic kidney disease with stage 1 through stage 4 chronic kidney disease, or unspecified chronic kidney disease; N18.3 Chronic kidney disease, stage 3 (moderate); J44.9 Chronic obstructive pulmonary disease, unspecified; G47.33 Obstructive sleep apnea (adult) (pediatric); N40.0 Benign prostatic hyperplasia without lower urinary tract symptoms; E78.5 Hyperlipidemia, unspecified; E86.0 Dehydration; F10.10 Alcohol abuse, uncomplicated; M25.462 Effusion, left knee; Y83.1 Surgical operation with implant of artificial internal device as the cause of abnormal reaction of the patient, or of later complication, without mention of misadventure at the time of the procedure; Z96.652 Presence of left artificial knee joint; Z91.81 History of falling; Z22.322 Carrier or suspected carrier of Methicillin resistant Staphylococcus aureus; Z79.84 Long term (current) use of oral hypoglycemic drugs; Z87.891 Personal history of nicotine dependence; Z95.828 Presence of other vascular implants and grafts
CPT/HCPCS: G0378; G0379

== ENCOUNTER 2017-10-03 07:36 | Emergency (ER) | payer MEDICARE, OTHER ==
[~2017-10-03] VITALS: Ht 180.3 cm; Wt 70.0 kg
[~2017-10-03 07:36] MED LIST changes: +CLINDAMYCIN300 M1 PO; +DOXYCYCL HYC100 MG PO; +FLORASTOR250 M1 PO; +GLIPIZIDE ER5 M1 PO; +KEFLEX500 M1 PO; +LORTAB 10-325 M1 TAB PO; +ZOCOR20 M1 PO
[2017-10-03] MEDS ORDERED: HYDROMORPHON4 MG PO (08:00)
[2017-10-03] MEDS ORDERED: MULTI VIT PO (08:01)
[2017-10-03] MEDS ORDERED: FERRAPLUS 90 PO (08:01)
[2017-10-03 08:08] LABS: URINE BILIRUBIN - DIPSTICK NEGATIVE (NEGATIVE); URINE BLOOD DIPSTICK TRACE-INTACT (NEGATIVE); URINE CLARITY CLEAR; URINE COLOR YELLOW; URINE GLUCOSE - DIPSTICK NEGATIVE (NEGATIVE); URINE KETONE NEGATIVE (NEGATIVE); URINE LEUK ESTERASE NEGATIVE (NEGATIVE); URINE PH 5.5 (4.5-8.0); URINE PROTEIN - DIPSTICK 30 mg/dL (NEG-TRACE); URINE SPECIFIC GRAVITY >=1.030; URINE UROBILINOGEN - DIPSTICK 0.2 E.U./dL (0.2)
[2017-10-03 08:08] LABS: HEMATOCRIT 26.7 % (39.0-50.0); HEMOGLOBIN 8.6 g/dl (14.0-18.0); MEAN CORPUSCULAR HGB 28.7 pG CALC (26.0-32.0); MEAN CORPUSCULAR HGB CONC 32.2 g/L CALC (32.0-36.0); NEUT# 11.16 thou/uL (1.82-7.42); RED CELL DISTRI WIDTH 15.9 % (11.5-15.5)
[2017-10-03 08:15] LABS: URINE NITRITE - DIPSTICK NEGATIVE (Negative)
[2017-10-03 08:17] LABS: URINE BACTERIA RARE hpf; URINE WBC 0-2 WBC/hpf (0-5)
[2017-10-03 08:22] LABS: ALBUMIN 3.6 g/dL (3.2-5.0); BILIRUBIN, TOTAL 0.6 mg/dL (0.0-1.4); CALCIUM 9.5 mg/dL (8.4-10.2); CREATININE 1.4 mg/dL (0.7-1.3); TOTAL PROTEIN 8.2 g/dL (6.3-8.2)
[2017-10-03 19:07] VITALS: BP_SYST 5
== END 2017-10-03 09:22 | disposition home or self-care (01) ==
LOC: ED 07:36
PROVIDERS: Emergency Medicine
DX: R60.0 Localized edema (principal); I25.10 Atherosclerotic heart disease of native coronary artery without angina pectoris; J44.9 Chronic obstructive pulmonary disease, unspecified; I10 Essential (primary) hypertension; E11.9 Type 2 diabetes mellitus without complications

== ENCOUNTER 2018-11-03 11:50 | Emergency (ER) | payer MEDICARE, OTHER ==
[~2018-11-03] VITALS: Ht 180.3 cm; Wt 65.0 kg
[~2018-11-03 11:50] MED LIST changes: +FERRAPLUS 90 PO; +HYDROMORPHON4 MG PO; +MULTI VIT PO
[2018-11-03 13:04] LABS: HEMOGLOBIN 10.4 g/dl (14.0-18.0); IMMATURE GRANULOCYTES 0.6 % (0.0-5.0); MEAN CORPUSCULAR HGB 29.9 pG CALC (26.0-32.0); MEAN CORPUSCULAR HGB CONC 32.5 g/L CALC (32.0-36.0); NEUT# 6.41 thou/uL (1.82-7.42); RED BLOOD COUNT 3.48 mill/uL (4.70-6.10); RED CELL DISTRI WIDTH 16.1 % (11.5-15.5)
[2018-11-03 13:55] LABS: ALBUMIN 3.4 g/dL (3.2-5.0); ALKALINE PHOSPHATASE 64 u/l (38-126); ANION GAP 11 (6-22 (CALC)); BILIRUBIN, TOTAL 0.3 mg/dL (0.0-1.4); BUN 21 mg/dL (8-23); BUN/CREATININE RATIO 19 (12-20 (CALC)); CARBON DIOXIDE 29 mmol/l (22-30); CHLORIDE 103 mmol/l (95-108); CREATININE 1.1 mg/dL (0.7-1.3); GFR > 60 ML/MIN (>=60 (CALC)); GFR FOR AFR.AMER. > 60 ML/MIN (>=60 (CALC)); POTASSIUM 4.1 mmol/l (3.5-5.1); SGOT/AST 22 u/l (19-48); SODIUM 138 mmol/l (137-146); TOTAL PROTEIN 6.9 g/dL (6.3-8.2)
[2018-11-03] MEDS ORDERED: MEDDOSEPAK PO ×2 (15:44→16:03)
[2018-11-03 15:52] VITALS: BP 162/76
== END 2018-11-03 16:05 | disposition home or self-care (01) ==
LOC: ED 11:50
PROVIDERS: Emergency Medicine
DX: J44.1 Chronic obstructive pulmonary disease with (acute) exacerbation (principal); M54.5 Low back pain; G89.29 Other chronic pain; R06.02 Shortness of breath; I10 Essential (primary) hypertension; M47.816 Spondylosis without myelopathy or radiculopathy, lumbar region
CPT/HCPCS: Q9967

== ENCOUNTER → 2019-01-29 | Outpatient (REF) | payer MEDICARE, OTHER ==
[~2019-01-29] MED LIST changes: +MEDDOSEPAK PO
[2019-01-29 11:45] LABS: HEMATOCRIT 34.7 % (39.0-50.0); HEMOGLOBIN 11.2 g/dl (14.0-18.0); IMMATURE GRANULOCYTES 0.7 % (0.0-5.0); MEAN CELL VOLUME 94.8 fL CALC (80.0-100.0); MEAN CORPUSCULAR HGB 30.6 pG CALC (26.0-32.0); MEAN CORPUSCULAR HGB CONC 32.3 g/L CALC (32.0-36.0); NEUT# 6.74 thou/uL (1.82-7.42); RED BLOOD COUNT 3.66 mill/uL (4.70-6.10); RED CELL DISTRI WIDTH 14.8 % (11.5-15.5)
[2019-01-29 11:56] LABS: ALBUMIN 3.6 g/dL (3.2-5.0); ALKALINE PHOSPHATASE 65 u/l (38-126); ANION GAP 17 (6-22 (CALC)); BILIRUBIN, TOTAL 0.6 mg/dL (0.0-1.4); BUN 20 mg/dL (8-23); BUN/CREATININE RATIO 15 (12-20 (CALC)); CALCULATED LDLCHOLESTEROL 42 mg/dL (62-129 (CALC)); CARBON DIOXIDE 26 mmol/l (22-30); CHLORIDE 100 mmol/l (95-108); CHOLESTEROL HDL RATIO 2.1 (<4.4 (CALC)); CREATININE 1.3 mg/dL (0.7-1.3); GFR 54 ML/MIN (>=60 (CALC)); GFR FOR AFR.AMER. > 60 ML/MIN (>=60 (CALC)); HDL CHOLESTEROL 53 mg/dL (>=40); POTASSIUM 4.1 mmol/l (3.5-5.1); SGOT/AST 25 u/l (19-48); SODIUM 138 mmol/l (137-146); TOTAL CHOLESTEROL 113 mg/dl (0-199); TOTAL PROTEIN 6.8 g/dL (6.3-8.2); TOTAL TRIGLYCERIDES 85 mg/dl (30-149); VLDL CHOLESTROL 17 mg/dl (0-38 (CALC))
== END | disposition home or self-care (01) ==
LOC: LAB 10:43
PROVIDERS: ATTEND Internal Medicine
DX: E11.40 Type 2 diabetes mellitus with diabetic neuropathy, unspecified (principal); G89.4 Chronic pain syndrome; J44.9 Chronic obstructive pulmonary disease, unspecified; M86.662 Other chronic osteomyelitis, left tibia and fibula; N18.3 Chronic kidney disease, stage 3 (moderate)